=== PATIENT | female | born 1995 | race Caucasian/White ===

== ENCOUNTER 2021-05-11 18:39 | Emergency (ER) | payer MEDICAID ==
[2021-05-11] MEDS ORDERED: Lactated Ringers 1,000 ML IV ONE (19:15)
[2021-05-11] MEDS ORDERED: Ketorolac 15 MG/ML SDV IVPUSH ONE (19:16)
[2021-05-11] MEDS ORDERED: LORazepam 2 MG/ML SDV IVPUSH ONE (19:16)
[2021-05-11] MEDS ORDERED: Potassium Chloride 20 MEQ Tab.ER PO ONE (20:32)
== END 2021-05-11 20:58 | disposition home or self-care (01) ==
LOC: JD.ED 18:39
DX: R25.2 Cramp and spasm (principal); Z87.891 Personal history of nicotine dependence
CPT/HCPCS: 36415; 80053; 83735; 85025; 96374; 96375; 99283; A9270; J1885; J2060; J7120